=== PATIENT | female | born 1955 | race Caucasian/White ===

== ENCOUNTER 2017-04-16 13:23 | Emergency (ER) | payer OTHER ==
[2017-04-16 13:39] VITALS: BP 142/74
--- NOTE | 2017-04-16 14:19 | UC ---
General HPI - HPI Summary HPI Summary: complaint of tick bite- found it approx 1 week ago removed the tick that was embedded for less then 24 hours area around the bite looks red to her worried about lyme disease complaint of sore throat for approx 2 days left ear has felt fluttery cough that has lingered for approx 2 months but has been improving non producitve cough no need for inhaler for approx 1 week denies fever and chills - History of Current Complaint Chief Complaint: UCGeneralIllness Stated Complaint: TICK BITE Time Seen by Provider: 04/16/17 14:16 Hx Obtained From: Patient - Allergy/Home Medications Allergies/Adverse Reactions: Allergies Allergy/AdvReac Type Severity Reaction Status Date / Time Adhesive Tape Allergy Rash Verified 04/16/17 13:34 Latex Allergy Rash Verified 04/16/17 13:34 PMH/Surg Hx/FS Hx/Imm Hx Previously Healthy: Yes - overactive bladder Endocrine History: Hypothyroidism Cardiovascular History: Hypertension Respiratory History: Asthma GI/ History: Gastroesophageal Reflux - Surgical History Surgical History: Yes Surgery Procedure, Year, and Place: appendectomy, tubal ligation, Uterine ablation, bladder sling, bilateral carpal tunnel - Family History Known Family History: Positive: Cardiac Disease, Hypertension, Diabetes - Social History Occupation: Unemployed Lives: With Family Alcohol Use: None Substance Use Type: None Smoking Status (MU): Never Smoked Tobacco - Immunization History Most Recent Influenza Vaccination: Not the 2015/2016 Season Most Recent Tetanus Shot: Unknown Review of Systems Constitutional: Negative Skin: Rash Eyes: Negative ENT: Sore Throat, Ear Ache, Nasal Discharge Respiratory: Cough Cardiovascular: Negative Gastrointestinal: Negative Genitourinary: Negative Motor: Negative Neurovascular: Negative Musculoskeletal: Negative Neurological: Headache Psychological: Negative All Other Systems Reviewed And Are Negative: Yes Physical Exam Triage Information Reviewed: Yes Appearance: No Pain Distress, Well-Nourished, Obese Vital Signs: Initial Vital Signs Temp 98.5 F 04/16/17 13:29 Pulse 66 04/16/17 13:29 Resp 16 04/16/17 13:29 BP 142/74 04/16/17 13:29 Pulse Ox 97 04/16/17 13:29 Vital Signs Reviewed: Yes Eyes: Positive: Conjunctiva Clear ENT: Positive: Pharyngeal erythema, TMs normal. Negative: Nasal congestion, Nasal drainage, Tonsillar swelling, Tonsillar exudate Neck: Positive: No Lymphadenopathy Respiratory: Positive: Lungs clear, Normal breath sounds, No respiratory distress, No accessory muscle use Cardiovascular: Positive: RRR, No Murmur, Pulses Normal Abdomen Description: Positive: Nontender, Soft Bowel Sounds: Positive: Present Musculoskeletal: Positive: Edema @ - BLE 1+ Neurological: Positive: Alert Psychological Exam: Normal Skin Exam: Normal Course/Dx - Course Course Of Treatment: exam completed. tick bite- noindication for prophylaxis. asthma excerbation resolving. pharyngitis- negative for strep- supportive care only - Differential Dx - Multi-Symptom Provider Diagnoses: tick bite. pharyngitis Discharge - Discharge Plan Condition: Stable Disposition: HOME Patient Education Materials: Pharyngitis (ED), Tick Bite (ED) Referrals: Svitlana Lee MD [Primary Care Provider] - Additional Instructions: Increase fluids and rest Take acetaminophen or ibuprofen for fever or pain Please review your discharge instructions. If your symptoms do not improve please call your primary care provider or return to urgent care. Your blood pressure is elevated. Please contact your primary care provider within 1 -4 weeks for further evaluation.
== END 2017-04-16 15:12 | disposition home or self-care (01) ==
LOC: UCCORT 13:23
DX: T14.8 Other injury of unspecified body region (principal); W57.XXXA Bitten or stung by nonvenomous insect and other nonvenomous arthropods, initial encounter; Y92.9 Unspecified place or not applicable; J02.9 Acute pharyngitis, unspecified
CPT/HCPCS: 87651; 99212; G0463

== ENCOUNTER 2017-11-10 08:46 | Emergency (ER) | payer OTHER ==
[2017-11-10 09:07] VITALS: BP 152/77
--- NOTE | 2017-11-10 09:34 | UC ---
Throat Pain/Nasal Ish HPI - HPI Summary HPI Summary: Nasal congestion, fogginess, greed discharge and some bleeding at times from the nose. This started about 5-7 days ago. NO fevers recently. The cough is mainly dry. - History of Current Complaint Chief Complaint: UCRespiratory Stated Complaint: COUGH CONGESTION Time Seen by Provider: 11/10/17 09:14 Hx Obtained From: Patient Hx Last Menstrual Period: n/a Onset/Duration: Gradual Onset, Lasting Days Severity: Moderate Cough: Productive - mainly dry but green sputum at times. Associated Signs & Symptoms: Positive: Nasal Discharge. Negative: Fever, Vomiting, Rash - Allergies/Home Medications Allergies/Adverse Reactions: Allergies Allergy/AdvReac Type Severity Reaction Status Date / Time Adhesive Tape Allergy Rash Verified 11/10/17 09:07 Latex Allergy Rash Verified 11/10/17 09:07 PMH/Surg Hx/FS Hx/Imm Hx Previously Healthy: Yes - Surgical History Surgical History: Yes Surgery Procedure, Year, and Place: appendectomy, tubal ligation, Uterine ablation, bladder sling, then rteconstruction, bilateral carpal tunnel; colon surgery 04/2017 - Family History Known Family History: Positive: Cardiac Disease, Hypertension, Diabetes - Social History Lives: With Family Alcohol Use: None Substance Use Type: None Smoking Status (MU): Never Smoked Tobacco - Immunization History Most Recent Influenza Vaccination: Not the Season Most Recent Tetanus Shot: Unknown Review of Systems ENT: Sinus Congestion, Sinus Pain/Tenderness Respiratory: Cough All Other Systems Reviewed And Are Negative: Yes Physical Exam Triage Information Reviewed: Yes Appearance: Well-Appearing, No Pain Distress, Obese Vital Signs: Initial Vital Signs Temp 98.9 F 11/10/17 09:00 Pulse 64 11/10/17 09:00 Resp 22 11/10/17 09:00 BP 152/77 11/10/17 09:00 Pulse Ox 99 11/10/17 09:00 Vital Signs Reviewed: Yes Eye Exam: Normal Eyes: Positive: Conjunctiva Clear ENT: Positive: Normal ENT inspection, Nasal congestion, TMs normal, Uvula midline. Negative: Pharyngeal erythema, TM bulging, TM dull, TM red, Tonsillar swelling, Tonsillar exudate, Trismus, Muffled voice, Sinus tenderness Neck: Positive: Supple, Nontender, No Lymphadenopathy. Negative: Nuchal Rigidity Respiratory: Positive: Lungs clear, Normal breath sounds, No respiratory distress, No accessory muscle use. Negative: Respiratory distress, Decreased breath sounds, Accessory muscle use, Crackles, Rhonchi, Stridor, Wheezing Cardiovascular: Positive: No Murmur, Pulses Normal, Brisk Capillary Refill. Negative: Tachycardia Abdomen Description: Positive: Soft. Negative: Distended, Guarding Musculoskeletal: Positive: Strength Intact, ROM Intact, No Edema Neurological: Positive: Alert, Muscle Tone Normal. Negative: Fatigued Psychological: Positive: Age Appropriate Behavior Skin: Negative: rashes Throat Pain/Nasal Course/Dx - Course Course Of Treatment: URI symptoms. There are some signs of early sinusitis. Supportive care described in detail and antibiocs if not better by day 9. - Differential Dx/Diagnosis Provider Diagnoses: uri Discharge - Discharge Plan Condition: Good Disposition: HOME Prescriptions: Amoxicillin PO (*) [Amoxicillin 500 MG CAP*] 500 mg PO TID #30 cap Patient Education Materials: Upper Respiratory Infection (ED) Referrals: Svitlana Lee MD [Primary Care Provider] - If Needed Additional Instructions: Try mucinex decongestant, nasal irrigation, vics, netti pots and if not better in three days then fill the antibiotic.
== END 2017-11-10 09:34 | disposition home or self-care (01) ==
LOC: UCCORT 08:46
DX: J06.9 Acute upper respiratory infection, unspecified (principal); E66.9 Obesity, unspecified
CPT/HCPCS: 99212; G0463

== ENCOUNTER 2018-08-29 19:07 | Emergency (ER) | payer OTHER ==
[2018-08-29 19:46] VITALS: BP 134/74
--- NOTE | 2018-08-29 20:29 | ED ---
Abdominal Pain/Male - HPI Summary HPI Summary: 63 yr old female with the complaint of left lower quadrant abdominal pain, onset a couple weeks ago, and progressively worse. No fever. Denies vomiting or diarrhea, but has nausea. urinary symptoms. She has had diverticulitis in the past. - History of Current Complaint Chief Complaint: UCGI Stated Complaint: ABDOMINAL PAIN Time Seen by Provider: 08/29/18 20:21 Pain Intensity: 7 - Allergies/Home Medications Allergies/Adverse Reactions: Allergies Allergy/AdvReac Type Severity Reaction Status Date / Time Adhesive Tape Allergy Rash Verified 11/10/17 09:07 Latex, Natural Rubber Allergy Rash Verified 08/29/18 19:40 Home Medications: Home Medications Cholecalciferol TAB* [Vitamin D TAB*] 2,000 units PO DAILY 08/29/18 [History Confirmed 08/29/18] Conjugated Estrogens VAG CM* [Premarin VAG CREAM*] 1 applic VAGINAL DAILY [History Confirmed 08/29/18] L.acidoph,Paracasei, B.lactis [Probiotic] 1 each PO DAILY 08/29/18 [History Confirmed 08/29/18] Senna TAB* [Senokot TAB*] 1 tab PO DAILY 08/29/18 [History Confirmed 08/29/18] Ubidecarenone [Co Q-10] 400 mg PO DAILY 08/29/18 [History Confirmed 08/29/18] PMH/Surg Hx/FS Hx/Imm Hx Endocrine/Hematology History: Reports: Hx Thyroid Disease - Hypothyroidism Denies: Hx Diabetes Cardiovascular History: Reports: Hx Hypertension Respiratory History: Reports: Hx Asthma Denies: Hx Chronic Obstructive Pulmonary Disease (COPD) GI History: Denies: Hx Ulcer - Surgical History Surgery Procedure, Year, and Place: appendectomy, tubal ligation, Uterine ablation, bladder sling, then rteconstruction, bilateral carpal tunnel; colon surgery 04/2017 Infectious Disease History: No Infectious Disease History: Denies: Hx Clostridium Difficile, Hx Hepatitis, Hx Human Immunodeficiency Virus (HIV), Hx of Known/Suspected MRSA, Hx Shingles, Hx Tuberculosis, Hx Known/ Suspected VRE, Hx Known/Suspected VRSA, History Other Infectious Disease, Traveled Outside the [place] in Last 30 Days - Family History Known Family History: Positive: Cardiac Disease, Hypertension, Diabetes - Social History Alcohol Use: None Substance Use Type: Reports: None Smoking Status (MU): Never Smoked Tobacco Review of Systems Positive: Abdominal Pain All Other Systems Reviewed And Are Negative: Yes Physical Exam Triage Information Reviewed: Yes Vital Signs On Initial Exam: Initial Vitals Temp Pulse Resp BP Pulse Ox 98.4 F 85 16 134/74 99 08/29/18 19:38 08/29/18 19:38 08/29/18 19:38 08/29/18 19:38 08/29/18 19:38 Vital Signs Reviewed: Yes Appearance: Positive: Well-Appearing, No Pain Distress Skin: Positive: Warm, Skin Color Reflects Adequate Perfusion Eyes: Positive: EOMI ENT: Positive: Normal ENT inspection Neck: Positive: Supple Respiratory/Lung Sounds: Positive: Clear to Auscultation, Breath Sounds Present Cardiovascular: Positive: RRR. Negative: Murmur Abdomen Description: Positive: Other: - tender in the LLQ Bowel Sounds: Positive: Present Musculoskeletal: Positive: Strength/ROM Intact Neurological: Positive: Sensory/Motor Intact, Alert, Oriented to Person Place, Time, CN Intact II-III Psychiatric: Positive: Normal - Kyle Coma Scale Best Eye Response: 4 - Spontaneous Best Motor Response: 6 - Obeys Commands Best Verbal Response: 5 - Oriented Coma Scale Total: 15 Diagnostics - Vital Signs Vital Signs Temp Pulse Resp BP Pulse Ox 08/29/18 19:38 98.4 F 85 16 134/74 99 - Laboratory Lab Statement: Any lab studies that have been ordered have been reviewed, and results considered in the medical decision making process. Abdominal Pain Fem Course/Dx - Course Course Of Treatment: 63 yr old with abdominal pain. To the ER for further evaluation. She states her is taking her by car. - Diagnoses Provider Diagnoses: Abdominal pain, left lower quadrant Discharge - Sign-Out/Discharge Documenting (check all that apply): Patient Departure All imaging exams completed and their final reports reviewed: No Studies - Discharge Plan Condition: Good Disposition: HOME-RECOMMEND TO ED Patient Education Materials: Acute Abdominal Pain (ED) Referrals: Svitlana Lee MD [Primary Care Provider] - Additional Instructions: Go to the ER immediately upon leaving here for further evaluation. - Billing Disposition and Condition Condition: GOOD Disposition: Home-Recommend to ED
== END 2018-08-29 20:29 | disposition home health service (06) ==
LOC: UCCORT 19:07
DX: R10.32 Left lower quadrant pain (principal); Z91.040 Latex allergy status; Z91.048 Other nonmedicinal substance allergy status
CPT/HCPCS: 99212; G0463